=== PATIENT | male | born 1960 | race Caucasian/White ===

== ENCOUNTER 2021-12-03 20:28 | Inpatient (IN) | payer OTHER ==
[~2021-12-03] VITALS: Ht 175.3 cm; Wt 63.5 kg
[2021-12-03 21:59] LABS: HEMOGLOBIN 16.3 gm/dl (14.0-17.5); RED BLOOD COUNT 5.18 M/UL (4.20-5.50); WHITE BLOOD COUNT 7.5 K/UL (4.5-11.0)
[2021-12-04 06:06] LABS: WHITE BLOOD COUNT 9.2 K/UL (4.5-11.0)
[2021-12-04 06:33] LABS: RED BLOOD COUNT 4.23 M/UL (4.20-5.50)
[2021-12-04 06:34] LABS: HEMOGLOBIN 13.1 gm/dl (14.0-17.5)
[2021-12-04 06:50] LABS: BUN/CREATININE RATIO 13 (0-10)
--- NOTE | 2021-12-04 07:46 | NUR ---
Critical CKMB 14.3, calcium 8.5 drop to 6.7, hgb drop 16.3 to 13.1 reported to Ellen MORAN no new orders at this time.
[2021-12-04] MEDS ORDERED: LEVOTHYROXINE25 MCG PO (10:18)
--- NOTE | 2021-12-04 12:39 | NUR ---
BG 223 REPORTED TO Miriam MORAN. NEW ORDER TO D/C D5NS W 20K IVF. ORDER READ BACK AND VERIFIED. NAD VSS, CALL LIGHT IN REACH.
--- NOTE | 2021-12-04 13:08 | NUR ---
NEW ORDER PER CHARU MORAN. TONY SCHMIDT Q4H. ORDER READ BACK AND VERIFIED. NAD VSS. PT RESTING WITH CALL LIGHT IN REACH.
[2021-12-05 05:15] LABS: HEMOGLOBIN 11.9 gm/dl (14.0-17.5); RED BLOOD COUNT 3.95 M/UL (4.20-5.50)
[2021-12-05 05:25] LABS: WHITE BLOOD COUNT 11.8 K/UL (4.5-11.0)
[2021-12-05 05:29] LABS: BUN/CREATININE RATIO 10 (0-10)
[2021-12-06 07:37] LABS: HEMOGLOBIN 11.8 gm/dl (14.0-17.5); RED BLOOD COUNT 3.85 M/UL (4.20-5.50); WHITE BLOOD COUNT 12.6 K/UL (4.5-11.0)
[2021-12-06 07:57] LABS: BUN/CREATININE RATIO 16 (0-10)
[2021-12-07 02:05] LABS: HEMOGLOBIN 11.6 gm/dl (14.0-17.5); RED BLOOD COUNT 3.8 M/UL (4.20-5.50); WHITE BLOOD COUNT 10.4 K/UL (4.5-11.0)
[2021-12-07 02:32] LABS: BUN/CREATININE RATIO 20 (0-10)
[2021-12-08 07:37] LABS: HEMOGLOBIN 12.8 gm/dl (14.0-17.5)
[2021-12-08 07:42] LABS: RED BLOOD COUNT 4.27 M/UL (4.20-5.50); WHITE BLOOD COUNT 7.3 K/UL (4.5-11.0)
[2021-12-08 07:57] LABS: BUN/CREATININE RATIO 17 (0-10)
[2021-12-09 02:38] LABS: HEMOGLOBIN 13.5 gm/dl (14.0-17.5); RED BLOOD COUNT 4.33 M/UL (4.20-5.50); WHITE BLOOD COUNT 10.3 K/UL (4.5-11.0)
[2021-12-09 03:00] LABS: BUN/CREATININE RATIO 26 (0-10)
[2021-12-09 18:24] LABS: ADENOVIRUS F 40/41 Not Detected (Negative); ASTROVIRUS Not Detected (Negative); CAMPYLOBACTER Not Detected (Negative); CRYPTOSPORIDIUM Not Detected (Negative); E.COLI 0157 Not Detected (Negative); ENTAMOEBA HISTOLYTICA Not Detected (Negative); ENTEROAGGREGATIVE E.COLI (EAEC Not Detected (Negative); ENTEROPATHOGENIC E.COLI (EPEC) Not Detected (Negative); ENTEROTOXIGENIC E.COLI (ETEC) Not Detected (Negative); GIARDIA LAMBLIA Not Detected (Negative); NOROVIRUS GI/GII Not Detected (Negative); PLESIOMONAS SHIGELLOIDES Not Detected (Negative); ROTOVIRUS A Not Detected (Negative); SALMONELLA Not Detected (Negative); SAPOVIRUS Not Detected (Negative); SHIG/ENTEROINVAS.ECOLI (EIEC) Not Detected (Negative); SHIGA-LIK TOX.PRO.E.COLI (STEC Not Detected (Negative); VIBRIO Not Detected (Negative); VIBRIO CHOLERAE Not Detected (Negative); YERSINIA ENTEROCOLITICA Not Detected (Negative)
[2021-12-10 06:15] LABS: HEMOGLOBIN 12.9 gm/dl (14.0-17.5); RED BLOOD COUNT 4.21 M/UL (4.20-5.50); WHITE BLOOD COUNT 11.1 K/UL (4.5-11.0)
[2021-12-10 06:53] LABS: BUN/CREATININE RATIO 31 (0-10)
[2021-12-10] MEDS ORDERED: HYDROCORTISONE10 MG PO (17:48)
[2021-12-10] MEDS ORDERED: LEVOFLOXACIN500 MG PO (17:48)
[2021-12-10] MEDS ORDERED: FLORINEF 0.1 M0.1 MG PO (17:48)
[2021-12-10] MEDS ORDERED: ELIQUIS 5 MG TAB5 MG PO (17:48)
[2021-12-10] MEDS ORDERED: LEVOTHYROXINE50 MCG PO (17:48)
[2021-12-11 02:33] LABS: HEMOGLOBIN 12.3 gm/dl (14.0-17.5); RED BLOOD COUNT 4.03 M/UL (4.20-5.50)
[2021-12-11 02:58] LABS: BUN/CREATININE RATIO 24 (0-10)
[2021-12-11] MEDS ORDERED: PROAIR HFA8.5 GM INH (09:06)
--- NOTE | 2021-12-11 09:30 | NUR ---
PATIENT ON ROOM AIR. DESATS INTO THE 60'S UPON EXURTION.
== END 2021-12-11 14:19 | disposition home or self-care (01) | DRG 871 ==
LOC: ER1 20:28 → CCU 23:52 → CDU 23:52 → M/S 23:52 → CCU 12-04 06:46 → M/S 12-05 16:26
PROVIDERS: Family Medicine; Internal Medicine; ADMIT Internal Medicine
PROC: 3E03329 Introduction of Other Anti-infective into Peripheral Vein, Percutaneous Approach (ICD-10-PCS; 2021-12-03)
PROC: 3E033XZ Introduction of Vasopressor into Peripheral Vein, Percutaneous Approach (ICD-10-PCS; 2021-12-03)
PROC: B24BZZZ Ultrasonography of Heart with Aorta (ICD-10-PCS; principal; 2021-12-04)
DX: A41.89 Other specified sepsis (principal); I26.99 Other pulmonary embolism without acute cor pulmonale; J18.9 Pneumonia, unspecified organism; R65.21 Severe sepsis with septic shock; J96.01 Acute respiratory failure with hypoxia; J69.0 Pneumonitis due to inhalation of food and vomit; E23.0 Hypopituitarism; E27.40 Unspecified adrenocortical insufficiency; J44.0 Chronic obstructive pulmonary disease with (acute) lower respiratory infection; E16.2 Hypoglycemia, unspecified; Z20.822 Contact with and (suspected) exposure to COVID-19; F17.200 Nicotine dependence, unspecified, uncomplicated; E87.6 Hypokalemia; Z98.890 Other specified postprocedural states; Z79.899 Other long term (current) drug therapy; Z79.01 Long term (current) use of anticoagulants; Z86.73 Personal history of transient ischemic attack (TIA), and cerebral infarction without residual deficits; B96.1 Klebsiella pneumoniae [K. pneumoniae] as the cause of diseases classified elsewhere
CPT/HCPCS: ECHO; 0240U; 36415; 36600; 70450; 71045; 71046; 72125; 80048; 80053; 80202; 80307; 81001; 82533; 82550; 82553; 82803; 82962; 83036; 83605; 83735; 83880; 84100; 84132; 84439; 84443; 84484; 85025; 85027; 85610; 86140; 87040; 87070; 87077; 87086; 87186; 87205; 87324; 87449; 87507; 92526; 92610; 93005; 93306; 93970; 94640; 94664; 94760; 96361; 96365; 96366; 96372; 96375; 96376; 97110; 97116; 97116-GP-CQ; 97162; 97165; 97530; 97535; 99285; A6212; G0378; J0696; J1650; J1720; J2543; J2930; J3370; J3480; J7030; J7070; Q9967